=== PATIENT | male | born 2005 | race Caucasian/White ===

== ENCOUNTER 2024-10-16 00:07 | Emergency (ER) | payer OTHER ==
[~2024-10-16] VITALS: Ht 177.8 cm; Wt 70.3 kg
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
[2024-10-16 02:26] VITALS: BP 128/80; PULSE 80; RESP 16; TEMP 98.1; O2SAT 99
== END 2024-10-16 02:38 | disposition home or self-care (01) ==
LOC: ER 00:08
DX: S06.0XAA Concussion with loss of consciousness status unknown, initial encounter (principal); S40.811A Abrasion of right upper arm, initial encounter; S40.211A Abrasion of right shoulder, initial encounter; V29.99XA Rider (driver) (passenger) of other motorcycle injured in unspecified traffic accident, initial encounter; Y93.89 Activity, other specified; Y92.89 Other specified places as the place of occurrence of the external cause; Y99.8 Other external cause status
CPT/HCPCS: 99284; L0172